=== PATIENT | female | born 1955 ===

== ENCOUNTER 2024-08-16 10:21 | Day surgery (SDC) | payer MEDICARE, OTHER, SELFPAY ==
[2024-08-16] VITALS (14 sets, daily range): BP systolic 106–190; BP diastolic 56–99; BMI 25.8
[2024-08-16 11:06] LABS: % Basophils 0.8 % (0-2); % Eosinophils 4.5 % (0-6); % Immature Granulocytes 0.6 % (0-0.5); % Lymphocytes 18.2 % (20.5-51.1); % Monocytes 6.4 % (1.7-9.3); % Neutrophils 69.5 % (42.2-75.2); Absolute Basophils 0.1 10^3/uL (0-0.2); Absolute Eosinophils 0.7 10^3/uL (0-0.7); Absolute Immature Granulocytes 0.1 10^3/uL (0-0.05); Absolute Lymphocytes 2.9 10^3/uL (1.2-3.4); Absolute Neutrophils 11.2 10^3/uL (1.4-6.5); Hematocrit 36.7 % (37.0-47.0); Hemoglobin 12.5 g/dL (12.0-16.0); Mean Corp Hgb Conc. 34.1 g/dL (33.0-37.0); Mean Corpuscular Hgb 32.1 pg (27.0-31.0); Mean Corpuscular Volume 94.3 fL (81.0-99.0); Mean Platelet Volume 11.2 fL (7.4-10.4); Nucleated Red Blood Cells % 0 %; Platelet Count 272 10^3/uL (130-400); Red Blood Cell Count 3.89 10^6/uL (4.20-5.40); Red Cell Dist. Width 13.8 % (11.5-14.5); White Blood Cell Count 16.1 10^3/uL (4.8-10.8)
[2024-08-16 11:07] LABS: Glucose - Point of Care 133 mg/dl (70-99)
[2024-08-16 11:23] LABS: Blood Urea Nitrogen 52 mg/dl (7-17); Calcium 9.4 mg/dl (8.4-10.2); Carbon Dioxide 24 mmol/L (22-30); Chloride 105 mmol/L (98-107); Glucose 140 mg/dl (70-99); Potassium 4.3 mmol/L (3.5-5.1); Sodium 142 mmol/L (135-145); eGFR 15.29
[2024-08-16 15:28] LABS: ACT-LR - POC 290 Seconds (116-155)
--- NOTE | 2024-08-16 19:26 | ITS.CL.CATH ---
[facility] - Catheterization
Cardiac Catheterization
Procedure Report:
LEFT HEART CATHETERIZATION
Date of Procedure: August 16, 2024
Referring: Dr. Ernesto Cowan
PROCEDURES:
1. Left heart catheterization, coronary angiogram.
2. Moderate sedation.
3. Intravascular ultrasound of distal left main
INDICATION: Trish is a 69-year-old female with past medical history of hypertension, hyperlipidemia, type 2 diabetes mellitus, end-stage renal disease on dialysis awaiting a AV fistula revision with less than 4 METS functional capacity and multiple
cardiovascular risk factors being sent in for a left heart catheterization to rule out obstructive CAD.
ACCESS: Right radial artery, 6Fr. sheath, under US guidance.
HEMODYNAMICS : (mmHg)
AO (s/d) : 1 76/53
LVEDP : 17
No significant gradient across the aortic valve to suggest aortic stenosis.
CORONARY FINDINGS
Dominance: Codominant
Left Main Trunk (LMT): Large caliber vessel that gives rise to the LAD and LCx branches. There is heavily calcified 30 to 40% distal left main stenosis which is eccentric in nature. IVUS assessment was performed which showed a minimal luminal
area greater than 6 mm� (6.1 to 6.2 mm�)
Left Anterior Descending Artery (LAD): Large caliber vessel that gives off 2 major diagonal branches as it courses along the anterior inter-ventricular groove before wrapping around the cardiac apex. Proximal LAD has 30 to 40% stenosis, otherwise
there is mild diffuse atherosclerotic plaque.
Left Circumflex Artery (LCx): Large caliber vessel that gives off multiple small to medium caliber major obtuse marginal (OM) branches as it courses along the atrio-ventricular (AV) groove. Proximal portion of OM1 has eccentric 40 to 50% stenosis.
Ostial left circumflex has 50% stenosis. Otherwise there is mild diffuse atherosclerotic plaque.
Right Coronary Artery (RCA): Small to medium caliber dominant vessel that gives rise to the posterior descending artery (RPDA). The RCA and its branches are free of angiographic disease.
IVUS ASSESSMENT OF LEFT MAIN: Additional heparin was given to maintain therapeutic ACT throughout the case. The left coronary artery was selectively engaged using a 6 [place] J[place] 4 guide catheter. A1 90 cm 0.014 BMW coronary wire was successfully
advanced into the distal LAD. Multiple passes were made with the [place] [facility] eye catheter with assessment performed over the heavily calcified 30 to 40% distal left main stenosis which was eccentric in nature. IVUS assessment showed a
minimal luminal area greater than 6 mm� (6.1 to 6.2 mm�)
SEDATION: 27minutes of procedural sedation was utilized. IV Midazolam and IV Fentanyl were administered. An independent mobile paramedical examiner was present to assist with and help manage the patient's level of consciousness and physiologic status.
RADIATION SUMMARY: Fluoro Time (min): 9.7, Dose (mGy): 514, DAP (Gy.cm2) : 27.7
Closure Device: There were no immediate intra-procedural complications. The sheath was pulled in the civil laboratory technician and a vascular-band applied to the right wrist for radial artery hemostasis using the patent hemostasis technique.
CONCLUSIONS
1. There is heavily calcified 30 to 40% distal left main stenosis which is eccentric in nature. IVUS assessment was performed which showed a minimal luminal area greater than 6 mm� (6.1 to 6.2 mm�)
2. Mild to moderate coronary artery disease as described above otherwise.
3. Elevated LVEDP at 17 mmHg
RECOMMENDATIONS
1. Wean radial band per protocol. Monitor right hand perfusion and for bleeding from the radial site following removal of the vascular-band following trans-radial access.
2. Continue aggressive medical therapy and risk factor modification for secondary CAD prevention.
3. Hydrate with normal saline to mitigate the risk of contrast-induced acute kidney injury.
4. Follow-up with Dr. Ernesto Cowan
Copy to: Dr. Ernesto Cowan
Mary Lewis MD, [facility], [facility]
== END 2024-08-16 19:10 | disposition home or self-care (01) ==
LOC: CATH 10:21
PROVIDERS: ATTENDING PHYSICIAN Internal Medicine Interventional Cardiology
DX: I25.10 Atherosclerotic heart disease of native coronary artery without angina pectoris (principal); I25.84 Coronary atherosclerosis due to calcified coronary lesion; E78.5 Hyperlipidemia, unspecified; E11.22 Type 2 diabetes mellitus with diabetic chronic kidney disease; I12.0 Hypertensive chronic kidney disease with stage 5 chronic kidney disease or end stage renal disease; N18.6 End stage renal disease; F17.210 Nicotine dependence, cigarettes, uncomplicated; Z99.2 Dependence on renal dialysis; Z79.82 Long term (current) use of aspirin; Z79.899 Other long term (current) drug therapy; Z79.4 Long term (current) use of insulin
CPT/HCPCS: 92978; 99152; 99153; 80048; 82962; 85025; 85347; 93458; C1753; C1769; C1887; C1894; Q9967